=== PATIENT | female | born 1965 | race Caucasian/White ===

== ENCOUNTER 2018-01-10 01:57 | Emergency (ER) | payer OTHER ==
[~2018-01-10] VITALS: Ht 154.9 cm; Wt 83.9 kg
[~2018-01-10 01:57] MED LIST: CYCL-1 PO
[2018-01-10] MEDS ORDERED: HYDROcodone/acetaminophen 5mg/325mg tablet PO ONE (02:15)
[2018-01-10] MEDS ORDERED: ondansetron 4mg rapidly disintigrating tab PO ONE (02:15)
[2018-01-10] MEDS ORDERED: clindamycin 150mg capsule PO ONE (02:15)
[2018-01-10] MEDS ORDERED: ACET-2615 PO (03:10)
[2018-01-10] MEDS ORDERED: CLIN150C2 PO (03:10)
[2018-01-10] MEDS ORDERED: IBUP-1986 PO (03:10)
[2018-01-10 03:18] VITALS: BP 157/66
== END 2018-01-10 03:41 | disposition home or self-care (01) ==
LOC: ER 01:57
DX: K04.7 Periapical abscess without sinus (principal); J45.909 Unspecified asthma, uncomplicated; F12.90 Cannabis use, unspecified, uncomplicated; Z88.0 Allergy status to penicillin; Z98.51 Tubal ligation status
CPT/HCPCS: 41800; 99284

== ENCOUNTER → 2018-01-11 | Emergency (ER) | payer OTHER ==
[~2018-01-11] MED LIST changes: +ACET-2615 PO; +CLIN150C2 PO; +IBUP-1986 PO
== END | disposition left against medical advice (07) ==
LOC: ER 11:25
DX: R22.0 Localized swelling, mass and lump, head (principal); Z53.21 Procedure and treatment not carried out due to patient leaving prior to being seen by health care provider